=== PATIENT | male | born 1995 | race African-American/Black ===

== ENCOUNTER 2016-07-03 07:38 | Inpatient (IN) ==
[2016-07-03] MEDS ORDERED: DIPH/TET/ACEL PERT BOOSTER VACCINE 0.5 ML VIAL IM ONE ×2 (07:41→07:53)
[2016-07-03] MEDS ORDERED: LACTATED RINGERS 1,000 ML IV STA (07:41)
[2016-07-03] MEDS ORDERED: HYDROmorphone 2 MG/1 ML VIAL IV STA (07:41)
[2016-07-03] MEDS ORDERED: CLINDAMYCIN INJ 600 MG in PREMIX 1 EACH IV STA (07:43)
[2016-07-03] MEDS ORDERED: GENTAMICIN INJ 120 MG in SODIUM CHLORIDE 0.9% 100 ML IV STA (07:43)
[2016-07-03] MEDS ORDERED: CLINDAMYCIN INJ 50 ML IV ONE ×2 (07:45→07:51)
[2016-07-03] MEDS ORDERED: GENTAMICIN 80 MG/2 ML VIAL ONE ×2 (07:46→07:52)
[2016-07-03 07:50] LABS: Basophils % 0.5 % (0.0-0.8); Eosinophils % 0.4 % (0.00-10.9); Hematocrit 46.3 VOL% (42.0-52.0); Hemoglobin 16.5 GM/DL (14.0-18.0); Immature Granulocytes % 0.5 %; Immature Granulocytes Absolute 0.04 #; Lymphocytes # 1.3 10*3/uL (1.4-4.0); Lymphocytes % 15.2 % (21.2-54.2); Mean Corpuscular HGB Conc 35.6 GM/DL (32-36); Mean Corpuscular Hemoglobin 34 PG (27-34); Mean Corpuscular Volume 96.5 FL (87-102); Mean Platelet Volume 10.1 FL (9.6-12.0); Monocytes # 0.5 10*3/uL (0.11-0.8); Monocytes % 5.8 % (1.7-12.7); Neutrophils # 6.5 10*3/uL (1.4-7.4); Neutrophils % 77.6 % (38.7-73.9); Platelet Count 217 T/CUMM (130-400); Red Cell Distribution Width 11.7 % (9.3-17.3); White Blood Count 8.3 T/CUMM (4-12)
[2016-07-03] MEDS ORDERED: CLINDAMYCIN INJ 900 MG in PREMIX 1 EACH IV STA (07:52)
[2016-07-03] MEDS ORDERED: SODIUM CHLORIDE 0.9% 1,000 ML IV STA (07:56)
[2016-07-03] MEDS ORDERED: HYDROmorphone 2 MG/1 ML VIAL ONE (07:58)
[2016-07-03 08:02] LABS: INR 1.1; PT Patient Result 11.7 SECS; Partial Thromboplastin Time 24.9 SECS (0-40)
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
[2016-07-03] MEDS ORDERED: CLINDAMYCIN INJ 900 MG in PREMIX 1 EACH IV ONE (08:05)
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
[2016-07-03 08:11] LABS: Alanine Aminotransferase 20 U/L (16-61); Albumin 4.7 G/DL (3.4-5.0); Alkaline Phosphatase 65 U/L (45-117); Amylase 116 U/L (25-115); Aspartate Amino Transferase 30 U/L (0-37); Blood Urea Nitrogen 10 MG/DL (7-18); Calcium 9.5 MG/DL (8.5-10.1); Glucose 112 MG/DL (74-106); Osmolality,Calculated 276.5 MOS/KG (273-304); Sodium 139 MMOL/L (136-145); Total Protein 7.6 G/DL (6.4-8.3)
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
[2016-07-03 08:12] LABS: Lactic Acid 2.9 MMOL/L (0.4-2.0)
[2016-07-03] MEDS ORDERED: LIDOCAINE 1%/EPI INJ 20 ML VIAL ONE (08:15)
[2016-07-03] MEDS ORDERED: BUPIVACAINE MPF 0.25% /EPI 30 ML VIAL ONE (08:15)
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
--- NOTE | 2016-07-03 10:59 | Anesthesia Post-Op ---
Anesthesia Post OP - Post Ansesthetic Evaluation Patient seen in post op: Yes Resp: within normal limits CV: within normal limits Mental: within normal limits Temp: within normal limits [id number]: within normal limits Nausea and Vomiting: within normal limits Pain: within normal limits
[2016-07-03] MEDS ORDERED: MIDAZOLAM 2 MG/2 ML VIAL ONE (11:02)
[2016-07-03] MEDS ORDERED: SEVOFLURANE 1 UNIT/15 MINUTE INH ONE (11:02)
[2016-07-03] MEDS ORDERED: fentaNYL 100 MCG/2 ML VIAL ONE ×2 (11:03)
[2016-07-03] MEDS ORDERED: ePHEDrine 50 MG/ML AMP ONE (11:03)
[2016-07-03] MEDS ORDERED: LACTATED RINGERS 3,000 ML IV ONE (11:03)
[2016-07-03] MEDS ORDERED: ALBUTEROL/IPRATROPIUM 3 ML NEB RESP TX ONE (11:10)
[2016-07-03] MEDS ORDERED: HYDROmorphone 2 MG/1 ML VIAL IV PRN ×2 (11:11→17:06)
[2016-07-03] MEDS ORDERED: ONDANSETRON 4 MG/2 ML VIAL IV PRN ×2 (11:11→12:25)
[2016-07-03] MEDS ORDERED: LACTATED RINGERS 1,000 ML IV SCH (11:30)
[2016-07-03] MEDS ORDERED: FLUTICASONE/SALMETEROL 100-50 DISKUS 14 DOSE INH PRN (12:25)
[2016-07-03] MEDS ORDERED: PROMETHAZINE 25 MG/1 ML VIAL IM PRN (12:25)
[2016-07-03] MEDS ORDERED: ALBUTEROL 2.5 MG/3 ML NEB RESP TX PRN (12:25)
[2016-07-03] MEDS ORDERED: HYDROmorphone PCA 30 MG/30 ML SYRINGE IV SCH (12:25)
[2016-07-03 13:09] LABS: Apearance,Urine ND (Clear); Urine Color ND (Yellow)
[2016-07-03] MEDS: LACTATED RINGERS 1,000 ML IV SCH ×2 (13:20→22:24)
[2016-07-03] MEDS: KETOROLAC 15 MG/1 ML VIAL IV SCH ×3 (13:33→23:27)
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
[2016-07-03] MEDS: MONTELUKAST 10 MG TABLET PO SCH (22:20)
[2016-07-04] MEDS: ENOXAPARIN 40 MG/0.4 ML SYRINGE SUBCUT SCH (04:12)
[2016-07-04 04:56] LABS: Basophils % 0.1 % (0.0-0.8); Hematocrit 38.1 VOL% (42.0-52.0); Hemoglobin 13.4 GM/DL (14.0-18.0); Immature Granulocytes % 0.7 %; Immature Granulocytes Absolute 0.13 #; Lymphocytes # 1.2 10*3/uL (1.4-4.0); Lymphocytes % 6.2 % (21.2-54.2); Mean Corpuscular HGB Conc 35.2 GM/DL (32-36); Mean Corpuscular Hemoglobin 34 PG (27-34); Mean Corpuscular Volume 96.7 FL (87-102); Mean Platelet Volume 10.5 FL (9.6-12.0); Monocytes # 1.1 10*3/uL (0.11-0.8); Monocytes % 5.5 % (1.7-12.7); Neutrophils # 16.7 10*3/uL (1.4-7.4); Neutrophils % 87.5 % (38.7-73.9); Platelet Count 146 T/CUMM (130-400); Red Blood Count 3.94 MC/CUMM (3.8-5.5); Red Cell Distribution Width 11.3 % (9.3-17.3); White Blood Count 19.1 T/CUMM (4-12)
[2016-07-04 05:34] LABS: Calcium 9.1 MG/DL (8.5-10.1); Osmolality,Calculated 277.3 MOS/KG (273-304); Potassium 3.7 MMOL/L (3.5-5.1)
[2016-07-04] MEDS: KETOROLAC 15 MG/1 ML VIAL IV SCH ×4 (06:24→23:58)
[2016-07-04] MEDS: LACTATED RINGERS 1,000 ML IV SCH (06:27)
[2016-07-04] MEDS: PANTOPRAZOLE 40 MG TABLET PO SCH (09:17)
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
[2016-07-04] MEDS: HYDROmorphone 2 MG/1 ML VIAL IV PRN ×2 (11:14→20:40)
[2016-07-04] MEDS ORDERED: PHENOL 1.4% THROAT SPRAY 177 ML BOTTLE PO PRN (12:22)
[2016-07-04] MEDS: MONTELUKAST 10 MG TABLET PO SCH (20:40)
[2016-07-05 05:03] LABS: Basophils % 0.1 % (0.0-0.8); Eosinophils % 0.1 % (0.00-10.9); Hematocrit 35.4 VOL% (42.0-52.0); Hemoglobin 12.6 GM/DL (14.0-18.0); Immature Granulocytes % 0.5 %; Immature Granulocytes Absolute 0.07 #; Lymphocytes # 0.8 10*3/uL (1.4-4.0); Lymphocytes % 5.5 % (21.2-54.2); Mean Corpuscular HGB Conc 35.6 GM/DL (32-36); Mean Corpuscular Hemoglobin 34 PG (27-34); Mean Corpuscular Volume 94.7 FL (87-102); Mean Platelet Volume 11.4 FL (9.6-12.0); Monocytes # 0.8 10*3/uL (0.11-0.8); Monocytes % 5.8 % (1.7-12.7); Platelet Count 146 T/CUMM (130-400); Red Blood Count 3.74 MC/CUMM (3.8-5.5); Red Cell Distribution Width 11.2 % (9.3-17.3); White Blood Count 13.6 T/CUMM (4-12)
[2016-07-05] MEDS: ENOXAPARIN 40 MG/0.4 ML SYRINGE SUBCUT SCH (05:43)
[2016-07-05] MEDS: KETOROLAC 15 MG/1 ML VIAL IV SCH ×2 (05:44→12:33)
[2016-07-05] MEDS: PANTOPRAZOLE 40 MG TABLET PO SCH (09:16)
[2016-07-05] MEDS: HYDROmorphone 2 MG/1 ML VIAL IV PRN (09:17)
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
[2016-07-05 11:38] VITALS: BP 113/61
== END 2016-07-05 12:45 | disposition home or self-care (01) | DRG 329 ==
LOC: EDUNIT# → EDBD → N.EDINP 07:38 → N.ED 07:38 → N.EDINP 08:30 → N.ED 09:43 → N.SDSINP 09:44 → OBSVTOIN 10:32 → N.3E 11:18
PROVIDERS: ADMIT Surgery; ATTEND Surgery